=== PATIENT | female | born 1975 | race Caucasian/White ===

== ENCOUNTER 2017-12-12 23:24 | Emergency (ER) | payer OTHER ==
[~2017-12-12] VITALS: Ht 154.9 cm; Wt 77.1 kg
[~2017-12-12 23:24] MED LIST: ACYCLOVIR 800800 MG PO; ALBUTEROL INHAL17 GM IH; ALLEGRA-D 12 H1 EAC1; ALLEGRA-D 12 H1 EAC1 PO; ALLEGRA-D 12 H1 EACH PO; AZITHROMYCIN 2250 MG PO; CIPRO250 M1 PO; CLEOCIN HCL150 MG PO; DIFLUCAN150 MG PO; DOXYCYCLINE 10100 M1 PO; ERYTHROMYCIN E3.5 G1 OPHTHALMIC; FLAGYL500 MG PO; GLUCOPHAGE500 MG; GLUCOPHAGE500 MG PO; LIDOCAINE VISC100 M1 MM; LISINOPRIL10 MG; LISINOPRIL20 MG PO; MUPIROCIN22 GM; NEXIUM40 MG PO; NORCO 5-325 TA1 EACH PO; NYAMYC15 GM TOP; NYSTATIN15 G2 TP; PRAVACHOL20 MG; PREDNISONE 20 M20 M1 PO; REGLAN 10 MG TA10 M1 PO; SIMETHICON CHEW80 M1 PO; ULTRAM 50MG TAB50 MG PO; VENTOLIN HFA 1818 GM INH; ZANTAC; ZPAK PO; ZYRTEC
[2017-12-12] MEDS ORDERED: GLYBURIDE 2.52.5 MG PO (23:36)
[2017-12-12] MEDS ORDERED: JARDIANCE10 MG PO (23:36)
[2017-12-12] MEDS ORDERED: LOMAIRA8 MG PO (23:37)
[2017-12-12 23:58] LABS: ABSOLUTE BASOPHILS 0.1 thou/uL (0.0-0.2); ABSOLUTE EOSINOPHILS 0.2 thou/uL (0.0-0.7); ABSOLUTE MONOCYTES 0.8 thou/uL (0.0-1.2); ABSOLUTE NEUTROPHILS 7.4 thou/uL (1.6-8.1); BASOPHILS 0.9 %; EOSINOPHILS 1.5 %; HEMATOCRIT 38.2 % (37.0-47.0); HEMOGLOBIN 12.7 gm/dL (12.0-15.0); LYMPHOCYTES 31.9 %; MCH 29.7 pg (26.0-34.0); MCHC 33.2 g/dL (28.0-37.0); MCV 89.4 fL (80.0-100.0); MONOCYTES 6.4 %; MPV 7.6 fl. (7.2-11.1); NUCLEATED RBCS 0 /100WBC; PLATELET COUNT* 427 thou/uL (150-400); POLYS 59.3 %; RBC 4.27 mil/uL (4.20-5.00); RDW-CV 13.6 % (10.5-14.5); WBC 12.4 thou/uL (4.0-11.0)
[2017-12-13 00:05] LABS: ANION GAP 8 mmol/L (7-16); BUN 9 mg/dL (7-18); CALCIUM 8.7 mg/dL (8.5-10.1); CHLORIDE 102 mmol/L (98-107); CO2 28 mmol/L (21-32); CREATININE 0.8 mg/dL (0.6-1.3); GLUCOSE 174 mg/dL (70-99); POTASSIUM 3.4 mmol/L (3.5-5.1); SODIUM 138 mmol/L (136-145)
[2017-12-13 00:17] LABS: ALBUMIN 3.4 g/dL (3.4-5.0); ALKALINE PHOSPHATASE 89 U/L (46-116); SGOT 8 U/L (15-37); SGPT 16 U/L (30-65); TOTAL BILIRUBIN 0.2 mg/dL (<0.1-1.0); TOTAL PROTEIN 7.6 g/dL (6.4-8.2); TROPONIN-I LEVEL <0.06 ng/mL (<0.06)
[2017-12-13 00:43] VITALS: BP 109/77
--- NOTE | 2017-12-13 15:55 | EKG ---
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
== END 2017-12-13 00:44 | disposition home or self-care (01) ==
LOC: M.ERS 23:24
PROVIDERS: Nurse Practitioner Family
DX: R07.89 Other chest pain (principal); F41.9 Anxiety disorder, unspecified; E11.9 Type 2 diabetes mellitus without complications; E78.00 Pure hypercholesterolemia, unspecified; I10 Essential (primary) hypertension; K21.9 Gastro-esophageal reflux disease without esophagitis; F17.210 Nicotine dependence, cigarettes, uncomplicated; Z88.0 Allergy status to penicillin; Z88.8 Allergy status to other drugs, medicaments and biological substances

== ENCOUNTER 2018-04-03 21:45 | Emergency (ER) | payer OTHER ==
[~2018-04-03] VITALS: Ht 154.9 cm; Wt 74.8 kg
[~2018-04-03 21:45] MED LIST changes: +GLYBURIDE 2.52.5 MG PO; +JARDIANCE10 MG PO; +LOMAIRA8 MG PO
[2018-04-03 21:48] VITALS: BP 143/89
[2018-04-03] MEDS ORDERED: MEDROLDOSEPACK PO (22:16)
[2018-04-03] MEDS ORDERED: ZPAK PO (22:16)
== END 2018-04-03 22:22 | disposition home or self-care (01) ==
LOC: M.ERS 21:45
DX: J03.90 Acute tonsillitis, unspecified (principal); E11.9 Type 2 diabetes mellitus without complications; E78.00 Pure hypercholesterolemia, unspecified; I10 Essential (primary) hypertension; K21.9 Gastro-esophageal reflux disease without esophagitis; F17.210 Nicotine dependence, cigarettes, uncomplicated; Z88.0 Allergy status to penicillin; Z88.6 Allergy status to analgesic agent

== ENCOUNTER 2018-10-22 20:51 | Emergency (ER) | payer OTHER ==
[~2018-10-22] VITALS: Ht 154.9 cm; Wt 81.7 kg
[~2018-10-22 20:51] MED LIST changes: -GLUCOPHAGE500 MG; +MEDROLDOSEPACK PO; -ZANTAC; +ZANTAC 150MG T150 MG PO
[2018-10-22] MEDS ORDERED: BENTYL 10 MG CA10 M1 PO (21:23)
[2018-10-22] MEDS ORDERED: SPIRONOLACTONE25 M1 PO (21:24)
[2018-10-22] MEDS ORDERED: CAMILA0.35 MG PO (21:26)
[2018-10-22 21:42] LABS: URINE BILIRUBIN NEGATIVE (Negative); URINE BLOOD NEGATIVE (Negative); URINE CLARITY CLEAR; URINE COLOR STRAW; URINE GLUCOSE-RANDOM 3+ (Negative); URINE KETONES NEGATIVE (Negative); URINE LEUKOCYTES-REFLEX NEGATIVE (Negative); URINE NITRITE-REFLEX NEGATIVE (Negative); URINE PROTEIN NEGATIVE (Negative); URINE UROBILINOGEN 0.2 E.U./dl (0.2-1.0)
[2018-10-22 21:48] LABS: ABSOLUTE BASOPHILS 0.1 thou/uL (0.0-0.2); ABSOLUTE EOSINOPHILS 0.2 thou/uL (0.0-0.7); ABSOLUTE LYMPHOCYTES 4.3 thou/uL (0.8-5.3); ABSOLUTE NEUTROPHILS 7.1 thou/uL (1.6-8.1); BASOPHILS 0.7 %; EOSINOPHILS 1.5 %; HEMOGLOBIN 12.8 gm/dL (12.0-15.0); LYMPHOCYTES 33.8 %; MCH 30.2 pg (26.0-34.0); MCHC 32.8 g/dL (28.0-37.0); MCV 91.8 fL (80.0-100.0); MONOCYTES 7.8 %; MPV 8.3 fl. (7.2-11.1); NUCLEATED RBCS 0 /100WBC; PLATELET COUNT* 447 thou/uL (150-400); POLYS 56.2 %; RBC 4.25 mil/uL (4.20-5.00); RDW-CV 13.6 % (10.5-14.5); WBC 12.6 thou/uL (4.0-11.0)
[2018-10-22 21:50] LABS: CREATININE 0.9 mg/dL (0.6-1.3); POTASSIUM 3.9 mmol/L (3.5-5.1)
[2018-10-22 21:54] LABS: ALBUMIN 3.8 g/dL (3.4-5.0); TOTAL BILIRUBIN 0.2 mg/dL (<0.1-1.0); TOTAL PROTEIN 7.8 g/dL (6.4-8.2)
[2018-10-22] MEDS ORDERED: VERTICALM25 MG PO (22:33)
[2018-10-22] MEDS ORDERED: ZOFRAN ODT4 MG PO (22:33)
[2018-10-22] MEDS ORDERED: FLONASE 0.05%50 MCG NASAL (22:33)
[2018-10-22 22:39] VITALS: BP 98/63
--- NOTE | 2018-10-23 13:48 | EKG ---
[place] [address] ELECTROCARDIOGRAM REPORT Name: JOSE MARTIN BARNES 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 10/23/18 1348 [id number] Eugenio Khan MD, FACC /EPI
== END 2018-10-22 22:42 | disposition home or self-care (01) ==
LOC: M.ERS 20:51
PROVIDERS: Emergency Medicine
DX: R42 Dizziness and giddiness (principal); R51 Headache; E11.9 Type 2 diabetes mellitus without complications; E78.00 Pure hypercholesterolemia, unspecified; I10 Essential (primary) hypertension; K21.9 Gastro-esophageal reflux disease without esophagitis; R16.0 Hepatomegaly, not elsewhere classified; F17.210 Nicotine dependence, cigarettes, uncomplicated; Z88.0 Allergy status to penicillin; Z88.1 Allergy status to other antibiotic agents

== ENCOUNTER 2019-12-06 20:41 | Emergency (ER) | payer OTHER ==
[~2019-12-06] VITALS: Ht 154.9 cm; Wt 90.7 kg
--- NOTE | ~2019-12-06 | EKG ---
[place] [address] ELECTROCARDIOGRAM REPORT Name: JOSE MARTIN BARNES Room: [facility]#: [id number] Admission: 12/06/19 Attend Phys: Discharge: 12/06/19 Date of : 73 Date of Service: 12/06/192052 Report #: [id number] THIS REPORT FOR: cc: Sheldon Kirkpatrick John E. DO Epiphany, Epiphany MD ~ THIS REPORT FOR: //name// 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
[~2019-12-06 20:41] MED LIST changes: +BENTYL 10 MG CA10 M1 PO; +CAMILA0.35 MG PO; +FLONASE 0.05%50 MCG NASAL; +SPIRONOLACTONE25 M1 PO; +VERTICALM25 MG PO; +ZOFRAN ODT4 MG PO
[2019-12-06] MEDS ORDERED: BENTYL 10 MG CA10 M1 PO (20:56)
[2019-12-06 21:23] LABS: ABSOLUTE BASOPHILS 0.1 thou/uL (0.0-0.2); ABSOLUTE EOSINOPHILS 0.1 thou/uL (0.0-0.7); ABSOLUTE LYMPHOCYTES 3.8 thou/uL (0.8-5.3); ABSOLUTE MONOCYTES 0.7 thou/uL (0.0-1.2); ABSOLUTE NEUTROPHILS 6.2 thou/uL (1.6-8.1); BASOPHILS 1.1 %; EOSINOPHILS 1.1 %; HEMOGLOBIN 13.8 gm/dL (12.0-15.0); LYMPHOCYTES 34.8 %; MCH 31.5 pg (26.0-34.0); MCHC 34.5 g/dL (28.0-37.0); MCV 91.1 fL (80.0-100.0); MONOCYTES 6.3 %; NUCLEATED RBCS 0 /100WBC; PLATELET COUNT* 326 thou/uL (150-400); POLYS 56.7 %; RDW-CV 13.4 % (10.5-14.5)
[2019-12-06 21:30] LABS: CALCIUM 8.7 mg/dL (8.5-10.1); CREATININE 0.8 mg/dL (0.6-1.3); POTASSIUM 3.5 mmol/L (3.5-5.1)
[2019-12-06 21:34] LABS: URINE BILIRUBIN NEGATIVE (Negative); URINE BLOOD 2+ (Negative); URINE CLARITY CLEAR; URINE COLOR YELLOW; URINE GLUCOSE-RANDOM 3+ (Negative); URINE KETONES NEGATIVE (Negative); URINE LEUKOCYTES-REFLEX NEGATIVE (Negative); URINE NITRITE-REFLEX NEGATIVE (Negative); URINE PROTEIN NEGATIVE (Negative); URINE SPECIFIC GRAVITY 1.015 (1.005-1.030); URINE UROBILINOGEN 0.2 E.U./dl (0.2-1.0)
[2019-12-06 21:35] LABS: ALBUMIN 3.6 g/dL (3.4-5.0); TOTAL BILIRUBIN 0.3 mg/dL (<0.1-1.0); TOTAL PROTEIN 8.3 g/dL (6.4-8.2)
[2019-12-06 21:43] LABS: BACTERIA-REFLEX 1-9 Few /HPF (None Seen); CASTS None Seen /LPF (None Seen); MUCUS None Seen strn/LPF (None Seen); SQUAMOUS 4-10 Moderate /LPF (0-3); URINE RBC 0-2 Rare /HPF (0-2)
[2019-12-06 21:44] LABS: CRYSTALS None Seen /LPF (None Seen); URINE WBC-REFLEX None Seen /HPF (0-5)
[2019-12-06] MEDS ORDERED: HYDROCHLOROTH12.5 M1 PO (22:41)
[2019-12-06] MEDS ORDERED: ZESTRIL20 MG PO (22:41)
[2019-12-06] MEDS ORDERED: XANAX 0.25 MG0.25 MG PO (22:47)
[2019-12-06 23:16] VITALS: BP 166/99
== END 2019-12-06 23:17 | disposition home or self-care (01) ==
LOC: M.ERS 20:41
PROVIDERS: Personal Emergency Response Attendant
DX: F41.9 Anxiety disorder, unspecified (principal); R42 Dizziness and giddiness; E11.9 Type 2 diabetes mellitus without complications; E78.00 Pure hypercholesterolemia, unspecified; K21.9 Gastro-esophageal reflux disease without esophagitis; F17.210 Nicotine dependence, cigarettes, uncomplicated; Z88.0 Allergy status to penicillin; Z88.6 Allergy status to analgesic agent; Z98.51 Tubal ligation status

== ENCOUNTER 2020-03-31 02:23 | Emergency (ER) | payer OTHER ==
[~2020-03-31] VITALS: Ht 154.9 cm; Wt 81.7 kg
[~2020-03-31 02:23] MED LIST changes: +HYDROCHLOROTH12.5 M1 PO; +XANAX 0.25 MG0.25 MG PO; +ZESTRIL20 MG PO
[2020-03-31] MEDS ORDERED: AZITHROMYCIN500 MG PO (02:39)
[2020-03-31 03:20] LABS: ABSOLUTE BASOPHILS 0.2 thou/uL (0.0-0.2); ABSOLUTE EOSINOPHILS 0.3 thou/uL (0.0-0.7); ABSOLUTE LYMPHOCYTES 4.4 thou/uL (0.8-5.3); ABSOLUTE NEUTROPHILS 7.8 thou/uL (1.6-8.1); BASOPHILS 1.1 %; EOSINOPHILS 2.2 %; HEMATOCRIT 43.3 % (37.0-47.0); HEMOGLOBIN 14.5 gm/dL (12.0-15.0); LYMPHOCYTES 32.5 %; MCH 30.8 pg (26.0-34.0); MCHC 33.6 g/dL (28.0-37.0); MCV 91.9 fL (80.0-100.0); MONOCYTES 7.4 %; MPV 8.8 fl. (7.2-11.1); NUCLEATED RBCS 0 /100WBC; PLATELET COUNT* 387 thou/uL (150-400); POLYS 56.8 %; RBC 4.71 mil/uL (4.20-5.00); RDW-CV 13.5 % (10.5-14.5); WBC 13.7 thou/uL (4.0-11.0)
[2020-03-31 03:22] LABS: CALCIUM 9.1 mg/dL (8.5-10.1); CREATININE 0.9 mg/dL (0.6-1.3)
[2020-03-31 03:27] LABS: ALBUMIN 3.6 g/dL (3.4-5.0); TOTAL BILIRUBIN 0.2 mg/dL (<0.1-1.0); TOTAL PROTEIN 9.3 g/dL (6.4-8.2)
[2020-03-31] MEDS ORDERED: HYDROCODONE-ACE15 ML PO (04:05)
[2020-03-31] MEDS ORDERED: CLEOCIN HCL300 MG PO (04:05)
[2020-03-31] MEDS ORDERED: DIFLUCAN150 MG PO (04:05)
[2020-03-31 04:22] VITALS: BP 123/77
== END 2020-03-31 04:24 | disposition home or self-care (01) ==
LOC: M.ERS 02:23
PROVIDERS: Emergency Medicine
DX: J02.0 Streptococcal pharyngitis (principal); E11.9 Type 2 diabetes mellitus without complications; I10 Essential (primary) hypertension; E78.00 Pure hypercholesterolemia, unspecified; K21.9 Gastro-esophageal reflux disease without esophagitis; F17.210 Nicotine dependence, cigarettes, uncomplicated; Z88.0 Allergy status to penicillin; Z88.6 Allergy status to analgesic agent

== ENCOUNTER 2020-06-11 22:28 | Emergency (ER) | payer OTHER ==
[~2020-06-11] VITALS: Ht 154.9 cm; Wt 83.9 kg
[~2020-06-11 22:28] MED LIST changes: +AZITHROMYCIN500 MG PO; +CLEOCIN HCL300 MG PO; +HYDROCODONE-ACE15 ML PO
[2020-06-11 23:34] LABS: URINE BILIRUBIN NEGATIVE (Negative); URINE BLOOD 1+ (Negative); URINE CLARITY CLEAR; URINE COLOR YELLOW; URINE GLUCOSE-RANDOM 2+ (Negative); URINE KETONES TRACE (Negative); URINE LEUKOCYTES-REFLEX NEGATIVE (Negative); URINE NITRITE-REFLEX NEGATIVE (Negative); URINE PROTEIN NEGATIVE (Negative); URINE SPECIFIC GRAVITY 1.025 (1.005-1.030); URINE UROBILINOGEN 0.2 E.U./dl (0.2-1.0)
[2020-06-11 23:55] LABS: CASTS None Seen /LPF (None Seen); SQUAMOUS >10 Many /LPF (0-3)
[2020-06-11 23:56] LABS: MUCUS 0-3 Light strn/LPF (None Seen); URINE RBC 0-2 Rare /HPF (0-2); URINE WBC-REFLEX 0-5 Rare /HPF (0-5)
[2020-06-11 23:57] LABS: BACTERIA-REFLEX 1-9 Few /HPF (None Seen); CRYSTALS None Seen /LPF (None Seen)
[2020-06-12 00:29] VITALS: BP 137/90
== END 2020-06-12 00:29 | disposition home or self-care (01) ==
LOC: M.ERS 22:28
PROVIDERS: Emergency Medicine
DX: M79.10 Myalgia, unspecified site (principal); R50.9 Fever, unspecified; I10 Essential (primary) hypertension; E11.9 Type 2 diabetes mellitus without complications; E78.00 Pure hypercholesterolemia, unspecified; K21.9 Gastro-esophageal reflux disease without esophagitis; F17.210 Nicotine dependence, cigarettes, uncomplicated; Z20.828 Contact with and (suspected) exposure to other viral communicable diseases; Z98.51 Tubal ligation status; Z98.82 Breast implant status; Z88.0 Allergy status to penicillin; Z88.6 Allergy status to analgesic agent

== ENCOUNTER 2021-11-02 09:59 | Emergency (ER) | payer OTHER ==
[~2021-11-02] VITALS: Ht 154.9 cm; Wt 90.7 kg
[2021-11-02 10:45] VITALS: BP 141/93
[2021-11-02] MEDS ORDERED: GLIPIZIDE 10 MG10 MG PO ×2 (10:48→12:47)
[2021-11-02] MEDS ORDERED: INVOKANA100 MG PO ×2 (10:48→12:47)
[2021-11-02] MEDS ORDERED: ZESTRIL20 MG PO ×3 (10:49→12:50)
[2021-11-02] MEDS ORDERED: PIOGLITAZONE30 MG PO ×2 (10:49→12:47)
[2021-11-02] MEDS ORDERED: CHILDREN'S ZYRT10 M1 PO (10:49)
[2021-11-02] MEDS ORDERED: LIPITOR10 MG PO ×2 (10:50→12:47)
[2021-11-02] MEDS ORDERED: GLYBURIDE 2.52.5 MG PO (12:47)
[2021-11-02] MEDS ORDERED: CLINDAMYCIN HC300 MG PO (12:47)
== END 2021-11-02 12:56 | disposition home or self-care (01) ==
LOC: M.ERS 09:59
DX: J02.9 Acute pharyngitis, unspecified (principal); H92.03 Otalgia, bilateral; E11.9 Type 2 diabetes mellitus without complications; I10 Essential (primary) hypertension; Z76.0 Encounter for issue of repeat prescription; K21.9 Gastro-esophageal reflux disease without esophagitis; E78.00 Pure hypercholesterolemia, unspecified; F17.210 Nicotine dependence, cigarettes, uncomplicated; Z91.048 Other nonmedicinal substance allergy status; Z98.51 Tubal ligation status; Z98.890 Other specified postprocedural states; Z79.899 Other long term (current) drug therapy; Z88.6 Allergy status to analgesic agent; Z88.0 Allergy status to penicillin